=== PATIENT | male | born 1960 | race African-American/Black ===

== ENCOUNTER 2020-12-10 11:56 | Emergency (ER) | payer MEDICAID ==
[~2020-12-10] VITALS: Ht 175.3 cm; Wt 100.0 kg
[2020-12-10] MEDS ORDERED: ONDANSETRON 4MG ODT PO ONE (12:30)
[2020-12-10] MEDS ORDERED: HYDROCODONE/ACETAMINOPHEN 5/325MG TABLET PO ONE (12:30)
[2020-12-10 13:30] VITALS: BP 146/87
[2020-12-10] MEDS ORDERED: KETOROLAC 60MG/2ML VIAL IM ONE (13:30)
== END 2020-12-10 15:43 | disposition home or self-care (01) ==
LOC: ER 11:56
DX: M54.5 Low back pain (principal); M54.6 Pain in thoracic spine; M54.2 Cervicalgia; G40.909 Epilepsy, unspecified, not intractable, without status epilepticus; Z90.49 Acquired absence of other specified parts of digestive tract; Z88.5 Allergy status to narcotic agent; V73.6XXA Passenger on bus injured in collision with car, pick-up truck or van in traffic accident, initial encounter; Y93.89 Activity, other specified; Y92.488 Other paved roadways as the place of occurrence of the external cause
CPT/HCPCS: 70450; 72070; 72100; 72125; 93005; 96372; 99285; J1885; Q0162